=== PATIENT | female | born 1970 | race Caucasian/White ===

== ENCOUNTER 2017-06-18 12:53 | Emergency (ER) | payer BC ==
[~2017-06-18] VITALS: Ht 170.2 cm; Wt 69.1 kg
[~2017-06-18 12:53] MED LIST: LATUDA40 MG PO; LEXAPRO20 MG PO; TEGRETOL200 MG PO
[2017-06-18] MEDS ORDERED: SKELAXIN800 MG PO (18:58)
[2017-06-18] MEDS ORDERED: NORCO 5/3251 TABLET PO (18:58)
[2017-06-18] MEDS ORDERED: MEDROL DOSEPAK4 MG PO (18:58)
[2017-06-18] MEDS ORDERED: ROBAXIN500 MG PO (19:02)
[2017-06-18 19:10] VITALS: BP 120/79
== END 2017-06-18 19:11 | disposition home or self-care (01) ==
LOC: EME 12:53
DX: M50.121 Cervical disc disorder at C4-C5 level with radiculopathy (principal); Z88.2 Allergy status to sulfonamides; Z88.0 Allergy status to penicillin
CPT/HCPCS: 72141; 84702; 99281; 99284; J1885

== ENCOUNTER 2017-06-29 11:35 | Day surgery (SDC) | payer BC ==
[~2017-06-29] VITALS: Ht 170.2 cm; Wt 76.7 kg
[~2017-06-29 11:35] MED LIST changes: +LAMICTAL100 MG PO; +MEDROL DOSEPAK4 MG PO; +NORCO 5/3251 TABLET PO; +ROBAXIN500 MG PO; +SKELAXIN800 MG PO
[2017-06-29] MEDS ORDERED: SKELAXIN800 MG PO (12:02)
[2017-06-29 12:17] VITALS: BP 117/76
[2017-06-29 19:54] VITALS: BP 111/59
[2017-06-29 23:15] VITALS: BP 98/57
[2017-06-30 03:21] VITALS: BP 114/65
[2017-06-30 08:07] VITALS: BP 129/74
[2017-06-30] MEDS ORDERED: DIAZEPAM10 MG PO (09:38)
[2017-06-30] MEDS ORDERED: OXYCODONE-APAP1 EACH PO (09:40)
== END 2017-06-30 10:37 | disposition home or self-care (01) ==
LOC: SDC 11:35 → 2SOUTH 17:13 → ENRESERV 17:16 → 3EAST 19:12
DX: M47.812 Spondylosis without myelopathy or radiculopathy, cervical region (principal); M50.223 Other cervical disc displacement at C6-C7 level; Z88.0 Allergy status to penicillin; Z88.2 Allergy status to sulfonamides; Z86.718 Personal history of other venous thrombosis and embolism; Z80.42 Family history of malignant neoplasm of prostate; Z83.49 Family history of other endocrine, nutritional and metabolic diseases
CPT/HCPCS: 72040; 76000; 94799; C1713; C1821; G0378; J0131; J0171; J0330; J1100; J1170; J2250; J2405; J2710; J3010; J3370; J3480

== ENCOUNTER 2017-07-09 20:06 | Emergency (ER) | payer BC ==
[~2017-07-09] VITALS: Ht 170.2 cm; Wt 66.4 kg
[~2017-07-09 20:06] MED LIST changes: +DIAZEPAM10 MG PO; +OXYCODONE-APAP1 EACH PO
[2017-07-10 02:24] VITALS: BP 125/92
== END 2017-07-10 02:25 | disposition home or self-care (01) ==
LOC: EME 20:06
DX: S16.1XXA Strain of muscle, fascia and tendon at neck level, initial encounter (principal); S00.33XA Contusion of nose, initial encounter; W18.30XA Fall on same level, unspecified, initial encounter; Z98.890 Other specified postprocedural states; Z98.1 Arthrodesis status; Z88.2 Allergy status to sulfonamides; Z88.0 Allergy status to penicillin
CPT/HCPCS: 70160; 72050; 99281; 99284